=== PATIENT | male | born 1995 | race Two or more races ===

== ENCOUNTER 2021-07-18 13:46 | Emergency (ER) | payer OTHER ==
[~2021-07-18] VITALS: Ht 182.9 cm; Wt 82.0 kg
[2021-07-18] MEDS ORDERED: MAGNESIUM/ALUMINUM HYDROXIDE/SIMETHICONE 30ML UDC PO STA (14:48)
[2021-07-18] MEDS ORDERED: ONDANSETRON 4MG ODT PO STA (14:48)
[2021-07-18] MEDS ORDERED: SODIUM CHLORIDE 0.9% 1,000 ML IV NR (15:00)
[2021-07-18 15:18] LABS: BASOPHILS % 0.4 % (0.0-2.0); EOSINOPHILS % 1.2 % (0.0-5.0); HEMATOCRIT. 45.9 % (42.0-52.0); HEMOGLOBIN. 15.3 g/dL (14.0-18.0); LYMPHOCYTES % 23.1 % (20.0-50.0); MEAN CORPUSCULAR HEMOGLOBIN 31.1 pg (28.0-32.0); MEAN CORPUSCULAR VOLUME 93.6 fL (80.0-94.0); MONOCYTES % 7.6 % (2.0-8.0); NEUTROPHILS % 67.7 % (40.0-76.0); PLATELET 236 x1000/uL (130-400); RED BLOOD CELL COUNT 4.91 mill/uL (4.7-6.1); RED CELL DISTRIBUTION WIDTH 14.8 % (11.6-14.6)
[2021-07-18 15:25] LABS: CHLORIDE 104 mEq/L (98-107); PROTHROMBIN TIME 10.7 sec (9.6-11.0)
[2021-07-18 17:13] VITALS: BP 119/77
== END 2021-07-18 17:16 ==
LOC: ER 13:46
DX: M25.561 Pain in right knee (principal); R11.0 Nausea; F20.9 Schizophrenia, unspecified
CPT/HCPCS: 36415; 71045; 73564; 80053; 83690; 85025; 85610; 96360; 96361; 99284; Q0162

== ENCOUNTER 2021-10-15 03:56 | Emergency (ER) | payer MEDICAID, OTHER ==
[~2021-10-15] VITALS: Ht 172.7 cm; Wt 70.0 kg
[2021-10-15 03:57] VITALS: BP 132/90
[2021-10-15] MEDS ORDERED: TETANUS, DIPHTHERIA, PERTUSSIS VAC/PF 0.5ML (>10YR OLD) IM ONE (04:15)
[2021-10-15] MEDS ORDERED: BACITRACIN ZINC OINT UDPKT TOP ONE (04:15)
[2021-10-15] MEDS ORDERED: LIDOCAINE HCL/PF 1% 10 MG/ML 5ML VIAL INFIL ONE (04:15)
== END 2021-10-15 04:44 | disposition home or self-care (01) ==
LOC: ER 03:56
DX: S71.112A Laceration without foreign body, left thigh, initial encounter (principal); V00.131A Fall from skateboard, initial encounter; Y93.51 Activity, roller skating (inline) and skateboarding; Y92.488 Other paved roadways as the place of occurrence of the external cause
CPT/HCPCS: 12001; 99283; J3490; Z7610

== ENCOUNTER 2021-11-24 15:29 | Emergency (ER) | payer MEDICAID ==
[~2021-11-24] VITALS: Ht 182.9 cm; Wt 86.0 kg
[2021-11-24 15:34] VITALS: BP 134/54
[2021-11-24] MEDS ORDERED: SODIUM CHLORIDE 0.9% 1,000 ML IV ONE (15:45)
[2021-11-24] MEDS ORDERED: NALOXONE HCL 1 MG/ML 2ML VIAL IV ONE (17:00)
[2021-11-24 17:24] LABS: BASOPHILS % 0.3 % (0.0-2.0); EOSINOPHILS % 0.4 % (0.0-5.0); HEMOGLOBIN. 13.8 g/dL (14.0-18.0); LYMPHOCYTES % 27.9 % (20.0-50.0); MEAN CORPUSCULAR HEMOGLOBIN 31.4 pg (28.0-32.0); MEAN CORPUSCULAR VOLUME 93.4 fL (80.0-94.0); MEAN PLATELET VOLUME 9.2 fl (7.4-10.4); MONOCYTES % 8.7 % (2.0-8.0); NEUTROPHILS % 62.7 % (40.0-76.0); PLATELET 188 x1000/uL (130-400); RED BLOOD CELL COUNT 4.39 mill/uL (4.7-6.1); RED CELL DISTRIBUTION WIDTH 14.5 % (11.6-14.6)
[2021-11-24 17:31] LABS: CHLORIDE 107 mEq/L (98-107)
[2021-11-24 17:36] LABS: ETHANOL BLOOD < 10 mg/dL
== END 2021-11-24 19:57 ==
LOC: ER 15:29
DX: F23 Brief psychotic disorder (principal); G93.40 Encephalopathy, unspecified; R03.0 Elevated blood-pressure reading, without diagnosis of hypertension; R00.1 Bradycardia, unspecified
CPT/HCPCS: 36415; 80053; 80307; 80320; 80329; 85025; 93005; 99284; J7030; G0480